=== PATIENT | male | born 1990 | race African-American/Black ===

== ENCOUNTER 2020-09-13 17:38 | Emergency (ER) | payer MEDICAID ==
[~2020-09-13] VITALS: Ht 185.4 cm; Wt 85.0 kg
[2020-09-13 17:54] VITALS: BP 132/90
[2020-09-13] MEDS ORDERED: PSEU60TA95 MT (18:19)
[2020-09-13] MEDS ORDERED: LORA10TA7 MT (18:19)
[2020-09-13] MEDS ORDERED: PSEUDOEPHEDRINE HCL 30MG TABLET PO ONE (18:30)
[2020-09-13] MEDS ORDERED: LORATADINE 10MG TABLET PO SCH (18:30)
== END 2020-09-13 19:00 | disposition home or self-care (01) ==
LOC: ER 17:38
DX: J30.89 Other allergic rhinitis (principal); R09.81 Nasal congestion
CPT/HCPCS: 99282